=== PATIENT | male | born 1950 | race Caucasian/White ===

== ENCOUNTER 2024-10-16 08:52 | Outpatient (RCR) | payer MEDICARE, OTHER, SELFPAY ==
--- NOTE | 2024-10-16 09:45 | PT.OIE ---
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, without mention of fluctuations (10/16/24) Visit Care Team Role Provider Type Jan Paul MD Family Provider Non-Staff Primary Care Provider Specialty: Internal Medicine Address: [address] , [place], [address] Email: Brian Mauro MD Attending Provider Non-Staff Referring Provider Specialty: Neurology Address: [address] , [place], [address] Email: Physical Therapy Initial Evaluation PT-OP-A Visit Information Start: 10/15/24 16:36 Freq: Status: Active Protocol: Document 10/16/24 09:01 MB (Rec: 10/16/24 09:34 MB [id number]) Out-Patient Physical Therapy Visit Information Visit Information Visit Type Initial Evaluation Visit Note Medicare/[employer] for [employer] Progress note by 11/15/24 Visit Start Time 09:01 Visit Stop Time 09:41 Visit Number 1 Number of [employer] Visits 0 Evaluation Information Evaluation Date 10/16/24 PT-OP-B Current Condition Start: 10/15/24 16:36 Freq: Status: Active Protocol: Document 10/16/24 09:01 MB (Rec: 10/16/24 09:34 MB [id number]) Current Condition History of Current Condition Onset Date 2 month diagnosis of PD Current Complaints No real complaints History of Current Condition Pt recently diagnosed with PD 2 months ago by neurologist at [facility]. He has had left and then right sided hand tremors for years. Left eye tremors are newer. He has trouble with his balance. He started Carbidopa Levadopa three times a day and is not taking medication at regular intervals d/t he does not make his meals at regular times and he likes to fall asleep again. He tries to take pill about 5 or 6 a.m. but does not always remember 11 a.m. med and hates his cell phone and so he is working into a routine. He is supposed to take every 6 hours. PT observes mild jaw tremor today. Pt likes walking and lifting weights. He likes jogging a little on his walks. He is a retired [employer]. Pt states he was diagnosed with essential tremor in face and hands and is on another medication for this as well. He is right handed. Pt reports some trouble turning with walking. Treatment Goals Patient/Caregiver Goals To live and he is unsure if he has symptoms or is doing well with symptoms PT-OP-C Subjective Start: 10/15/24 16:36 Freq: Status: Active Protocol: Document 10/16/24 09:01 MB (Rec: 10/16/24 16:41 MB [id number]) OP-PT Subjective Patient Comments Patient Comments See history of current condition and pt states that he does not know if he has any trouble or if he needs PT. Patient Questionnaires Other Questionnaire Name and Score FES score is 20/64, which is not very significant PT-OP-G Mobility & Gait Start: 10/15/24 16:36 Freq: Status: Active Protocol: Document 10/16/24 09:01 MB (Rec: 10/16/24 09:34 MB [id number]) OP Gait Assessment Comments Gait Comments Decreased arm swing with gait and no scuffing of feet PT-OP-Q Treatments Start: 10/15/24 16:36 Freq: Status: Active Protocol: Document 10/16/24 09:01 MB (Rec: 10/16/24 09:34 MB [id number]) Gait Training Gait Activity 6MWT Comments Pt gait trains 1530 feet in 6 minutes with decreased arm swing and good stepping and no scuffing of feet and norm for age is 1581 feet Neuro Re-Education Treatment Coordination Activities 30 sec STS Comments 14 reps in 30 sec TUG Comments 10 sec and pt states that he is a lazy walker and like to look at the birds, etc, even though he could walk faster Self-Care/Home Management Treatment Education Patient Education Home Exercise Program Other Education Extensive ed to pt and about PD, basal ganglia, increasing amplitude, arm swing and gait speed, benefits upright bike and boxing, they to con't at d/c PT-OP-T Assessment and Plan Start: 10/15/24 16:36 Freq: Status: Active Protocol: Document 10/16/24 09:01 MB (Rec: 10/16/24 16:41 MB [id number]) Physical Therapy Assessment Assessment Summary Assessment Pt reports new dx of PD and long history of what was diagnosed as essential tremor in B hands, face, tick in his left greater than right eye. Pt does not know if he has any needs and so PT focused on functional testing today. His 6MWT distance was very close to norm for his age . He prefers to walk slowly and this showed up in TUG as well at 10 sec. STS is 14 in 30 sec. His gait is good as far as LE foot clearance and he tends to have a stroll- type speed and decreased arm swing that he can increase when asked. Spoke at length to pt and about goal of increasing amplitude with exercise including big steps and big arm swing and the benefits of this rather than jogging when dx with PD. Also ed in upright bike. Plan is to d/c PT at this time d/t no real current needs. Physical Therapy Plan Frequency and Duration Frequency of Treatment D/c PT Plan of Care Start Date 10/16/24 Plan of Care End Date 10/16/24
--- NOTE | 2024-10-16 16:42 | PT.OIE ---
Addendum entered and electronically signed by Alma Martinez, PT 11/06/24 13:32: Per patient , IT, reports that PT needs to update designation again, that provider., Dr. Mauro, is neurologist and not psychiatrist. Original Note: 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, without mention of fluctuations (10/16/24) Visit Care Team Role Provider Type Jan Paul MD Family Provider Non-Staff Primary Care Provider Specialty: Internal Medicine Address: [address], [place], [address] Email: Brian Mauro MD Attending Provider Non-Staff Referring Provider Specialty: Psychiatry Address: [address] [place] [address], [place], [address] Email: Physical Therapy Initial Evaluation PT-OP-A Visit Information Start: 10/15/24 16:36 Freq: Status: Active Protocol: Document 10/16/24 09:01 MB (Rec: 10/16/24 09:34 [id number]) Out-Patient Physical Therapy Visit Information Visit Information Visit Type Initial Evaluation Visit Note Medicare/ for Life Progress note by 11/15/24 Visit Start Time 09:01 Visit Stop Time 09:41 Visit Number 1 Number of [employer] Visits 0 Evaluation Information Evaluation Date 10/16/24 PT-OP-B Current Condition Start: 10/15/24 16:36 Freq: Status: Active Protocol: Document 10/16/24 09:01 MB (Rec: 10/16/24 09:34 [id number]) Current Condition History of Current Condition Onset Date 2 month diagnosis of PD Current Complaints No real complaints History of Current Condition Pt recently diagnosed with PD 2 months ago by neurologist at [facility]. He has had left and then right sided hand tremors for years. Left eye tremors are newer. He has trouble with his balance. He started Carbidopa Levadopa three times a day and is not taking medication at regular intervals d/t he does not make his meals at regular times and he likes to fall asleep again. He tries to take pill about 5 or 6 a.m. but does not always remember 11 a.m. med and hates his cell phone and so he is working into a routine. He is supposed to take every 6 hours. PT observes mild jaw tremor today. Pt likes walking and lifting weights. He likes jogging a little on his walks. He is a retired [employer]. Pt states he was diagnosed with essential tremor in face and hands and is on another medication for this as well. He is right handed. Pt reports some trouble turning with walking. Treatment Goals Patient/Caregiver Goals To live and he is unsure if he has symptoms or is doing well with symptoms PT-OP-C Subjective Start: 10/15/24 16:36 Freq: Status: Active Protocol: Document 10/16/24 09:01 MB (Rec: 10/16/24 16:41 MB [id number]) OP-PT Subjective Patient Comments Patient Comments See history of current condition and pt states that he does not know if he has any trouble or if he needs PT. Patient Questionnaires Other Questionnaire Name and Score FES score is 20/64, which is not very significant PT-OP-G Mobility & Gait Start: 10/15/24 16:36 Freq: Status: Active Protocol: Document 10/16/24 09:01 MB (Rec: 10/16/24 09:34 MB [id number]) OP Gait Assessment Comments Gait Comments Decreased arm swing with gait and no scuffing of feet PT-OP-Q Treatments Start: 10/15/24 16:36 Freq: Status: Active Protocol: Document 10/16/24 09:01 MB (Rec: 10/16/24 09:34 MB [id number]) Gait Training Gait Activity 6MWT Comments Pt gait trains 1530 feet in 6 minutes with decreased arm swing and good stepping and no scuffing of feet and norm for age is 1581 feet Neuro Re-Education Treatment Coordination Activities 30 sec STS Comments 14 reps in 30 sec TUG Comments 10 sec and pt states that he is a lazy walker and like to look at the birds, etc, even though he could walk faster Self-Care/Home Management Treatment Education Patient Education Home Exercise Program Other Education Extensive ed to pt and about PD, basal ganglia, increasing amplitude, arm swing and gait speed, benefits upright bike and boxing, they to con't at d/c PT-OP-T Assessment and Plan Start: 10/15/24 16:36 Freq: Status: Active Protocol: Document 10/16/24 09:01 MB (Rec: 10/16/24 16:41 MB [id number]) Physical Therapy Assessment Assessment Summary Assessment Pt reports new dx of PD and long history of what was diagnosed as essential tremor in B hands, face, tick in his left greater than right eye. Pt does not know if he has any needs and so PT focused on functional testing today. His 6MWT distance was very close to norm for his age . He prefers to walk slowly and this showed up in TUG as well at 10 sec. STS is 14 in 30 sec. His gait is good as far as LE foot clearance and he tends to have a stroll- type speed and decreased arm swing that he can increase when asked. Spoke at length to pt and about goal of increasing amplitude with exercise including big steps and big arm swing and the benefits of this rather than jogging when dx with PD. Also ed in upright bike. Plan is to d/c PT at this time d/t no real current needs. Physical Therapy Plan Frequency and Duration Frequency of Treatment D/c PT Plan of Care Start Date 10/16/24 Plan of Care End Date 10/16/24
== END 2024-10-18 13:56 | disposition home or self-care (01) ==
LOC: PHYS 08:52
PROVIDERS: Family Provider Internal Medicine; PCP Internal Medicine; Referring Provider Psychiatry & Neurology Neurology; Visit Provider Psychiatry & Neurology Neurology
DX: G20.A1 Parkinson's disease without dyskinesia, without mention of fluctuations (principal)
CPT/HCPCS: 97162; 97535